=== PATIENT | female | born 1960 | race Two or more races ===

== ENCOUNTER 2018-07-29 16:40 | Inpatient (IN) | payer MEDICAID ==
[~2018-07-29] VITALS: Ht 165.1 cm; Wt 68.0 kg
[2018-07-29] MEDS ORDERED: ALBU2SYR3 INH (17:00)
[2018-07-29] MEDS ORDERED: CALC-15 PO (17:00)
[2018-07-29] MEDS ORDERED: PHEN100C12 PO (17:00)
[2018-07-29] MEDS ORDERED: RISP1TAB7 PO (17:00)
[2018-07-29] MEDS ORDERED: TEMA15CA PO (17:00)
[2018-07-29] MEDS ORDERED: PHEN97.22 PO (17:00)
[2018-07-29] MEDS ORDERED: TRAZ150T75 PO (17:00)
[2018-07-29] MEDS ORDERED: QUET25TA PO (17:00)
[2018-07-29] MEDS ORDERED: OMEP40CA37 PO (17:00)
[2018-07-29] MEDS ORDERED: OXCA300T15 PO (17:00)
[2018-07-29] MEDS ORDERED: SIMV20TA6 PO (17:00)
[2018-07-29] MEDS ORDERED: ASPIRIN 300 MG RECTAL SUPP RC ONE ×2 (17:11→17:15)
[2018-07-29] MEDS ORDERED: LORAZEPAM 2 MG/1 ML VIAL ONE ×2 (17:12→18:28)
[2018-07-29] MEDS ORDERED: VANCOMYCIN IV 1,000 MG in IV DEXTROSE 5% 250 ML IV ONE (17:15)
[2018-07-29] MEDS ORDERED: LORAZEPAM 2 MG/1 ML VIAL IV ONE ×2 (17:15→18:30)
[2018-07-29] MEDS ORDERED: PIPERACILLIN SODIUM/TAZOBACTAM 3.375 G in IV DEXTROSE 5% 50 ML IV ONE (17:15)
[2018-07-29] MEDS ORDERED: IV NORMAL SALINE 1000 ML BAG IV ONE (17:15)
[2018-07-29 17:20] LABS: EOSINOPHILS # (AUTO) 0.1 K/uL (0.0-0.7); EOSINOPHILS % (AUTO) 1.6 % (0.0-7.0); HEMATOCRIT 38.2 % (31.2-41.9); LYMPHOCYTES # (AUTO) 1.3 K/uL (20.0-40.0); LYMPHOCYTES % (AUTO) 33.8 % (20.5-51.5); MEAN CORPUSCULAR HGB CONC 34 g/dL (32.3-35.6); MEAN CORPUSCULAR VOLUME 93.7 fL (75.5-95.3); MONOCYTES # (AUTO) 0.3 K/uL (2.0-10.0); MONOCYTES % (AUTO) 8.3 % (0.0-11.0); NEUTROPHILS # (AUTO) 2.1 K/uL (1.8-8.9); NEUTROPHILS % (AUTO) 55.3 % (38.5-71.5); PLATELET COUNT (AUTO) 217 K/uL (179-408); RED BLOOD CELL COUNT(AUTO) 4.07 MIL/uL (3.63-4.92); WHITE BLOOD COUNT (AUTO) 3.8 K/uL (3.8-11.8)
[2018-07-29] MEDS ORDERED: PIPERACILLIN/TAZOBACTAM/D5W 50 ML IV ONE (17:20)
[2018-07-29] MEDS ORDERED: VANCOMYCIN IV 200 ML ONE (17:20)
[2018-07-29 17:43] LABS: ALANINE AMINOTRANSFERASE 29 U/L (14-59); ALKALINE PHOSPHATASE 81 U/L (50-136); ASPARTATE AMINOTRANSFERASE 24 U/L (15-37); BILIRUBIN,DIRECT < 0.1 mg/dL (0.0-0.2); BILIRUBIN,TOTAL 0.2 mg/dL (0.2-1.0); CARBON DIOXIDE 25 mmol/L (21-32); CHLORIDE 98 mmol/L (98-107); CREATININE 0.9 mg/dL (0.6-1.3); GLUCOSE 108 mg/dL (74-106); TOTAL PROTEIN, SERUM 7.6 g/dL (6.4-8.2)
[2018-07-29 17:44] LABS: POTASSIUM 4.6 mmol/L (3.5-5.1); UREA NITROGEN, BLOOD 11 mg/dL (7-18)
[2018-07-29 18:05] LABS: *BILIRUBIN,URIN NEGATIVE (NEGATIVE); *BLOOD, URINE NEGATIVE (NEGATIVE); *CLARITY,URINE CLEAR (CLEAR); *COLOR,URINE YELLOW (YELLOW); *KETONES,URINE NEGATIVE (NEGATIVE); *PROTEIN,URINE NEGATIVE (NEGATIVE); *UROBILINOGEN,URINE 0.2 E.U./dl (NORMAL); LEUKOCYTE ESTERASE ,URINE NEGATIVE (NEGATIVE); NITRITE, URINE NEGATIVE (NEGATIVE); UGLUCOSE NEGATIVE (NEGATIVE)
[2018-07-29 18:10] LABS: MUCUS,URINE FEW /LPF (0-FEW); WBC,URINE 0-3 /HPF (0-3)
--- NOTE | 2018-07-29 19:15 | NUR ---
REPORT RECEIVED FROM ALEENA RAMOS
--- NOTE | 2018-07-29 19:33 | NUR ---
REPORT GIVEN TO TELEMETRY NURSE, LUCY. SEPSIS PROTOCOL RE-ASSESSMENT TO BE DONE BY FLOOR NURSE.
--- NOTE | 2018-07-29 19:50 | NUR ---
Pt. admitted to TELEMETRY, under care of Dr. SHIN Belongs List completed
--- NOTE | 2018-07-29 20:00 | NUR ---
RECEIVED PATIENT VIA GURNEY FROM ER. PATIENT IS ALERT TO SELF ONLY, BUT UNABLE TO COMPREHEND DUE TO MENTAL STATUS. PATIENT IS VERY AGITATED, UNABLE TO REDIRECT. TRYING TO CLIMB OOB AND REMOVE IV LINES. UNABLE TO PLACE TELE AT THIS TIME. CALLED OUT TO DR. SZYMANSKI FOR FURTHER ORDERS. BED ALARM ON. CALL LIGHT IN REACH. ALL NEEDS ATTENDED. WILL CONTINUE TO MONITOR AND ASSESS.
[2018-07-29] MEDS: LORAZEPAM 2 MG/1 ML VIAL IV PRN (20:19)
--- NOTE | 2018-07-29 20:30 | NUR ---
RECEIVED NEW ORDERS FROM DR. SZYMANSKI. PATIENT GIVEN ATIVAN 1MG IV PRN FOR AGITATION PER RN. VS WNL. H/L INTACT AND PATENT, NOTED TO LEFT FA #22 GAUGE. SEIZURES PRECAUTIONS IN PLACE, SIDES RAILS PADDED. ON O2 2L NC SATING WELL. WILL CONTINUE TO MONITOR. PATIENT IS ON TELE SR. ALL NEEDS ATTENDED, BED ALARM ON.
[2018-07-29] MEDS ORDERED: MORPHINE SULFATE 2 MG/1 ML DISP.SYRIN IV PRN (20:45)
[2018-07-29] MEDS ORDERED: LORAZEPAM 2 MG/1 ML VIAL IV PRN (20:45)
[2018-07-29] MEDS ORDERED: ZIPRASIDONE MESYLATE 20 MG VIAL IM PRN (20:45)
[2018-07-29] MEDS ORDERED: ALBUTEROL SULFATE 2.5 MG/3 ML NEBU NEB PRN (20:45)
[2018-07-29] MEDS ORDERED: ACETAMINOPHEN 650 MG SUPP.RECT RC PRN (20:45)
[2018-07-29] MEDS ORDERED: ONDANSETRON 4 MG/2 ML VIAL IV PRN (20:45)
[2018-07-29] MEDS: IV D5/ 0.9% NACL 1,000 ML IV PRN (21:01)
[2018-07-29 21:25] VITALS: BP 126/75
--- NOTE | 2018-07-29 21:30 | NUR ---
PATIENT ASLEEP. ON TELE SR. IVF INFUSING WELL ORDERED PER MD. PATIENT IS NPO ORDERED. NO RESP. DISTRESS NOTED. NO SEIZURE ACTIVITY NOTED, WILL CONTINUE TO MONITOR. ALL NEEDS ATTENDED.
[2018-07-30 04:00] VITALS: BP 108/52
[2018-07-30 05:44] LABS: BASOPHILS % (AUTO) 0.6 % (0.0-2.0); EOSINOPHILS # (AUTO) 0.1 K/uL (0.0-0.7); EOSINOPHILS % (AUTO) 1.5 % (0.0-7.0); HEMATOCRIT 35.4 % (31.2-41.9); HEMOGLOBIN 12.2 g/dL (10.9-14.3); LYMPHOCYTES # (AUTO) 2.3 K/uL (20.0-40.0); MEAN CORPUSCULAR HEMOGLOBIN 31.9 uug (24.7-32.8); MEAN CORPUSCULAR HGB CONC 35 g/dL (32.3-35.6); MEAN CORPUSCULAR VOLUME 92.4 fL (75.5-95.3); MONOCYTES # (AUTO) 0.4 K/uL (2.0-10.0); MONOCYTES % (AUTO) 6.9 % (0.0-11.0); NEUTROPHILS # (AUTO) 3.2 K/uL (1.8-8.9); PLATELET COUNT (AUTO) 215 K/uL (179-408); RED BLOOD CELL COUNT(AUTO) 3.83 MIL/uL (3.63-4.92)
[2018-07-30 06:13] LABS: THYROID STIMULATING HORMONE 0.724 mIU/mL (0.358-3.740)
[2018-07-30 06:32] LABS: BILIRUBIN,TOTAL 0.3 mg/dL (0.2-1.0); CREATININE 0.8 mg/dL (0.6-1.3); MAGNESIUM 1.7 mg/dL (1.8-2.4); POTASSIUM 3.6 mmol/L (3.5-5.1); TOTAL PROTEIN, SERUM 6.6 g/dL (6.4-8.2)
--- NOTE | 2018-07-30 07:15 | NUR ---
patient received resting in bed with her head covered with blanket, patient in no distress noted, davey catheter draining well. IV fluids running on left forearm at 75ml/hr.continue to monitor
[2018-07-30] MEDS ORDERED: MORPHINE SULFATE 4 MG/1 ML DISP.SYRIN IV PRN (08:30)
[2018-07-30] MEDS ORDERED: MAGNESIUM SULFATE/D5W 100 ML IV SCH (08:30)
[2018-07-30 08:43] VITALS: BP 95/65
--- NOTE | 2018-07-30 08:53 | NUR ---
Pt is awake and alert at this time,oriented to self, disoriented to place and time, able to verbalize president at this time, patient with fair insight into her Disease Process of Seizures, patient was advised of reason for admission,patient verbalizes she usually is disoriented when she has had a seizure, patient verbalizes she is also aware when she will be having one, stated that she usually she haves a headache coming on and sometimes tremors in upper extremities, continue to monitor patient provided with orientation, call light within reach,maintain seizure precautions.
[2018-07-30] MEDS ORDERED: PANTOPRAZOLE SODIUM 40 MG VIAL IV SCH (09:00)
[2018-07-30] MEDS ORDERED: ACETAMINOPHEN 325 MG TABLET PO PRN (09:00)
--- NOTE | 2018-07-30 09:01 | NUR ---
patient verbalized she is a current everyday smoker with approximately 3 cigarettes a day, Dr Zaragoza notified, no orders for patch a this time per MD.
[2018-07-30] MEDS: LORAZEPAM 2 MG/1 ML VIAL IV PRN ×2 (10:03→15:25)
[2018-07-30 11:44] VITALS: BP 102/68
--- NOTE | 2018-07-30 11:54 | NUR ---
PATIENT FREQUENTLY ATTEMPTING TO GET OUT OF BED WITHOUT ASSISTANCE, PATIENT WITH IV FLUIDS, INDWELLING CATHETER AND DVT PUMPS TODAY,FALL RISK, REMOVED DVT PUMPS. PATIENT UNSAFE, ATTEMPTS TO GET UP AND GETS ENTANGLED ON TUBING, PATIENT NEEDS FREQUENT REDIRECTION, ATIVAN 1MG IV WAS PROVIDED HOWEVER CALMED PATIENT FOR SHORT PERIOD OF TIME, PATIENT IS REDIRECTABLE NOT COMBATIVE HOWEVER FORGETFUL, FALL RISK. POOR MEMORY CONTINUE TO MONITOR AND EDUCATE FREQUENT ROUNDING, MAINTAIN FALL PRECAUTIONS AND SEIZURE PRECAUTIONS.
--- NOTE | 2018-07-30 13:10 | NUR ---
Patient sitting up in bed eating lunch no distress noted, swallowing well, continues to need frequent redirection attempts to ambulate without assistance. patient verbalizing she needs to void, redirected to indwelling catheter, patient forgetful. continue to redirect , fall risk
[2018-07-30] MEDS ORDERED: PHENYTOIN SODIUM EXTENDED 100 MG CAPSULE.SA PO ONE (14:00)
--- NOTE | 2018-07-30 15:00 | NUR ---
[place] catheter removed per MD orders, patient voiding after removal without difficulty continue to monitor
[2018-07-30] MEDS: IV D5/ 0.9% NACL 1,000 ML IV PRN (15:28)
[2018-07-30 15:30] VITALS: BP 111/70
--- NOTE | 2018-07-30 15:30 | NUR ---
Pt has a 1:1 sitter due to patient trying to get out of bed and lowry to the restroom while having a davey cath in place. Pt is at risk for injury
[2018-07-30 19:00] VITALS: BP 123/81
--- NOTE | 2018-07-30 19:30 | NUR ---
Received patient in stable condition at start of shift. Vital signs in range. A/Ox1-2 with confusion. Patient resting comfortably in bed at beginning of shift in no acute distress. 1:1 sitter at the bedside for safety. Patient on Seizure precautions. Bed rails padded. Room checked for safety at start of shift. Call light in reach. Will continue to monitor through shift.
[2018-07-30] MEDS ORDERED: QUETIAPINE FUMARATE 25 MG TABLET PO PRN (19:45)
[2018-07-30] MEDS: PHENOBARBITAL 32.4 MG TABLET PO SCH (20:23)
[2018-07-30] MEDS: OXCARBAZEPINE 300 MG TABLET PO SCH (20:55)
[2018-07-30] MEDS: PHENYTOIN 50 MG TAB.CHEW PO SCH (20:55)
[2018-07-30] MEDS ORDERED: TRAZODONE 100 MG TABLET PO SCH (21:00)
[2018-07-30] MEDS ORDERED: risperiDONE 1 MG TABLET PO SCH (21:00)
[2018-07-31 04:39] VITALS: BP 137/72
--- NOTE | 2018-07-31 06:35 | NUR ---
Patient slept intermittently through shift. No acute distress noted. Vital signs WNL. 1:1 sitter at the bedside for safety. Safety measures implemented. All needs attended to. Medications administered per MD order. compliant with care. Will endorse to day shift nurse.
[2018-07-31 07:12] VITALS: BP 113/78
[2018-07-31] MEDS ORDERED: GLUCERNA 1.2 1000ML LIQUID GT SCH (08:00)
--- NOTE | 2018-07-31 08:00 | NUR ---
AWAKE COOPERATE WELL NO PAIN OR H/A EAT BREAKFAST WELL ON FALL /SEIZURE PRECAUTION CALL LIGHT INREACH AND SITTER AT BEDSIDE FOR SAFETY
[2018-07-31] MEDS: PHENOBARBITAL 32.4 MG TABLET PO SCH (08:10)
[2018-07-31] MEDS: PHENYTOIN 50 MG TAB.CHEW PO SCH (08:10)
[2018-07-31] MEDS: OXCARBAZEPINE 300 MG TABLET PO SCH (08:11)
[2018-07-31] MEDS ORDERED: FAMOTIDINE 20 MG TABLET PO SCH (09:00)
[2018-07-31 11:25] VITALS: BP 102/76
--- NOTE | 2018-07-31 12:30 | NUR ---
VS STABLE NO FEVER NO SOB OR PAIN OR SEIZURE CLOSED OBSERVATION EAT LUNCH WELL
--- NOTE | 2018-07-31 14:30 | NUR ---
D/C INSTRUCTION REGARDING NEED TO F/U WITH OWN PMD CONTINUE HOME MEDICINE ORDER AND EDUCATION PK GIVEN ,VERBALIZES UNDERSTAND AND SIGNS D/C [facility]ET [facility] WAS CALL BUT THEY DO NOT HAVE SOMEONE TO PICK HER UP THEN FAMILY WAS INFORM OF DISCHARGE TODAY AND MESSAGE LEFT. HL WAS DISCONTINUED
--- NOTE | 2018-07-31 15:35 | NUR ---
D/C [facility] WAS CALLTO INFORMOF PATIENT ON THE WAY CONDITION STABLE NO PAIN OR FEVER
== END 2018-07-31 15:35 | DRG 53 ==
LOC: ER 16:42 → TELE 19:39 → MED 07-30 13:15
PROVIDERS: ADMIT Internal Medicine; ATTEND Internal Medicine
DX: G40.909 Epilepsy, unspecified, not intractable, without status epilepticus (principal); D68.59 Other primary thrombophilia; E87.2 Acidosis; G93.89 Other specified disorders of brain; I69.354 Hemiplegia and hemiparesis following cerebral infarction affecting left non-dominant side; S09.90XS Unspecified injury of head, sequela; X58.XXXS Exposure to other specified factors, sequela; F17.210 Nicotine dependence, cigarettes, uncomplicated; Z79.899 Other long term (current) drug therapy; Z74.09 Other reduced mobility; F29 Unspecified psychosis not due to a substance or known physiological condition
CPT/HCPCS: 36415; 70030-TC; 70450; 71045; 83605; 83735; 84443; 85025; 85730; 87040; 87086; 87400; 93005; 94664; 97165; A4663; C9113; J2060; J2543; J3370; J3475; J3486; J7030; J7042

== ENCOUNTER 2018-11-26 00:39 | Inpatient (IN) | payer MEDICAID ==
[~2018-11-26] VITALS: Ht 154.9 cm; Wt 49.9 kg
[~2018-11-26 00:39] MED LIST: ALBU2SYR3 INH; CALC-15 PO; OMEP40CA37 PO; OXCA300T15 PO; PHEN100C12 PO; PHEN97.22 PO; QUET25TA PO; RISP1TAB7 PO; SIMV20TA6 PO; TEMA15CA PO; TRAZ150T75 PO
[2018-11-26] MEDS ORDERED: IPRATROPIUM BROMIDE 0.5 MG/2.5 ML NEBU NEB ONE (00:45)
[2018-11-26] MEDS ORDERED: ALBUTEROL SULFATE 2.5 MG/3 ML NEBU NEB ONE (00:45)
[2018-11-26] MEDS ORDERED: methylPREDNISolone SOD SUCC 125 MG/2 ML VIAL IV ONE (00:45)
[2018-11-26] MEDS ORDERED: IPRATROPIUM BROMIDE 0.5 MG/2.5 ML NEBU ONE (00:51)
[2018-11-26 01:14] LABS: BASOPHILS % (AUTO) 0.6 % (0.0-2.0); EOSINOPHILS # (AUTO) 0.1 K/uL (0.0-0.7); EOSINOPHILS % (AUTO) 2.1 % (0.0-7.0); HEMATOCRIT 38.4 % (31.2-41.9); HEMOGLOBIN 12.9 g/dL (10.9-14.3); LYMPHOCYTES # (AUTO) 1.2 K/uL (20.0-40.0); LYMPHOCYTES % (AUTO) 23.3 % (20.5-51.5); MEAN CORPUSCULAR HEMOGLOBIN 30.6 uug (24.7-32.8); MEAN CORPUSCULAR HGB CONC 34 g/dL (32.3-35.6); MEAN CORPUSCULAR VOLUME 91.4 fL (75.5-95.3); MONOCYTES # (AUTO) 0.5 K/uL (2.0-10.0); MONOCYTES % (AUTO) 9.4 % (0.0-11.0); NEUTROPHILS # (AUTO) 3.4 K/uL (1.8-8.9); NEUTROPHILS % (AUTO) 64.6 % (38.5-71.5); PLATELET COUNT (AUTO) 252 K/uL (179-408); WHITE BLOOD COUNT (AUTO) 5.3 K/uL (3.8-11.8)
[2018-11-26] MEDS ORDERED: ALBUTEROL SULFATE 2.5 MG/3 ML NEBU ONE (01:24)
[2018-11-26] MEDS ORDERED: ALBUTEROL SULFATE 2.5 MG/ 0.5 ML NEBU ONE (01:24)
[2018-11-26 01:30] LABS: CREATININE 0.7 mg/dL (0.6-1.3); POTASSIUM 3.6 mmol/L (3.5-5.1)
[2018-11-26 01:36] LABS: BILIRUBIN,DIRECT 0.1 mg/dL (0.0-0.2); BILIRUBIN,TOTAL 0.2 mg/dL (0.2-1.0); TOTAL PROTEIN, SERUM 7.9 g/dL (6.4-8.2)
[2018-11-26 01:43] LABS: PHENOBARBITAL 37.2 ug/mL (15.0-39.0); PHENYTOIN (DILANTIN) 21.7 ug/mL (10.0-20.0)
--- NOTE | 2018-11-26 02:02 | NUR ---
notified by lab there will be delay with lactic acid result due to problem w machine
[2018-11-26] MEDS ORDERED: methylPREDNISolone SOD SUCC 125 MG/2 ML VIAL ONE (02:26)
--- NOTE | 2018-11-26 02:34 | NUR ---
very hard stick patient md : brian notified and made aware .no ivf acccess at this time .
[2018-11-26] MEDS ORDERED: methylPREDNISolone SOD SUCC 125 MG/2 ML VIAL IM ONE (02:45)
[2018-11-26] MEDS ORDERED: CEFTAZIDIME 1 G VIAL IM ONE (02:45)
[2018-11-26] MEDS ORDERED: CEFTAZIDIME 1 G VIAL ONE (02:53)
--- NOTE | 2018-11-26 03:00 | NUR ---
called [facility] for panel call LUIS khalil director of transportation .
--- NOTE | 2018-11-26 03:01 | NUR ---
patient is a hard stick and needs a PIccline as per MD :brian ,print line supervisor made aware ..
--- NOTE | 2018-11-26 03:10 | NUR ---
straight catheterization for urine collection for ua and c and s. done aseptically .
--- NOTE | 2018-11-26 03:10 | NUR ---
02 room air saturation 90 to 91% placed 02 nasal cannula at 3 liters/ min .hob up .
--- NOTE | 2018-11-26 03:30 | NUR ---
called [facility] again for panel call .
[2018-11-26 03:32] LABS: *BILIRUBIN,URIN NEGATIVE (NEGATIVE); *BLOOD, URINE NEGATIVE (NEGATIVE); *CLARITY,URINE CLEAR (CLEAR); *COLOR,URINE YELLOW (YELLOW); *KETONES,URINE NEGATIVE (NEGATIVE); LEUKOCYTE ESTERASE ,URINE NEGATIVE (NEGATIVE); NITRITE, URINE NEGATIVE (NEGATIVE); UGLUCOSE NEGATIVE (NEGATIVE)
[2018-11-26 03:36] LABS: RBC,URINE 0-3 /HPF (0-3); WBC,URINE 0-3 /HPF (0-3)
[2018-11-26 03:37] LABS: BACTERIA,URINE NONE SEEN /HPF (NONE SEEN); SQUAMOUS EPITHELIAL CELL,UR FEW /HPF (NONE SEEN)
--- NOTE | 2018-11-26 04:03 | NUR ---
sbar report given to RICHARD CROOKS.patient going to bed 204.
--- NOTE | 2018-11-26 04:24 | NUR ---
patient will need PICCLINE placement in am MD :CINTHYA aware no ivf fluids given as per md patient not sepsis patient .
[2018-11-26 04:30] VITALS: BP 101/69
[2018-11-26] MEDS ORDERED: Z GUARD REMEDY PASTE 57 GM TUBE TOP PRN (05:30)
[2018-11-26] MEDS ORDERED: ACETAMINOPHEN 325 MG TABLET PO PRN (05:30)
[2018-11-26] MEDS ORDERED: TRAZODONE 100 MG TABLET PO PRN (05:30)
[2018-11-26] MEDS ORDERED: ALBUTEROL SULFATE 2.5 MG/3 ML NEBU NEB PRN (05:30)
[2018-11-26] MEDS ORDERED: QUETIAPINE FUMARATE 25 MG TABLET PO PRN (05:30)
[2018-11-26] MEDS ORDERED: risperiDONE 1 MG TABLET PO PRN (05:30)
--- NOTE | 2018-11-26 06:11 | NUR ---
THIS IS A 58 Y.O. FEMALE CAME IN FOR SOB/COUGHING. ADMITTING DX EXACERBATION OF ASTHMA. ADMISSION ASSESSMENTS DONE. PATIENT ON O2 AT 3LPM SAT AT 98%. NO SOB OR RESP DISTRESS AT PRESENT.
[2018-11-26] MEDS: methylPREDNISolone SOD SUCC 40 MG/ML VIAL IV SCH ×3 (06:23→21:05)
[2018-11-26] MEDS: IPRATROPIUM BROMIDE 0.5 MG/2.5 ML NEBU NEB SCH ×5 (07:35→22:31)
--- NOTE | 2018-11-26 07:40 | NUR ---
RECEIVED SHIFT REPORT FROM TUBER HELPER NURSE. PATIENT IS IN BED, AWAKE ALERT AND ORIENTED. NO SIGNS OF DISTRESS NOTED. ON 3L OF OXYGEN VIA NASAL CANNULA. WILL CONTINUE TO MONITOR.
[2018-11-26] MEDS: OXCARBAZEPINE 300 MG TABLET PO SCH (10:55)
[2018-11-26] MEDS: PHENOBARBITAL 32.4 MG TABLET PO SCH (10:55)
[2018-11-26] MEDS: PHENYTOIN SODIUM EXTENDED 100 MG CAPSULE.SA PO SCH ×3 (10:55→16:46)
[2018-11-26 11:33] VITALS: BP 111/54
[2018-11-26] MEDS: IV NS 1000 ML 1,000 ML IV PRN (12:21)
[2018-11-26 16:00] VITALS: BP 110/74
--- NOTE | 2018-11-26 19:24 | NUR ---
REPORT GIVEN TO SECURITY CLERK. PATIENT IS ALERT AND ORIENTED. BED IS IN LOW LOCKED POSITION WITH CALL LIGHT IN REACH. ON 3L VIA NASAL CANNULA. NO DISTRESS NOTED.
[2018-11-26] MEDS: SIMVASTATIN 20 MG TABLET PO SCH (20:16)
[2018-11-26] MEDS: risperiDONE 1 MG TABLET PO SCH (20:16)
[2018-11-26] MEDS: QUETIAPINE FUMARATE 25 MG TABLET PO SCH (20:17)
[2018-11-26 20:37] VITALS: BP 110/66
[2018-11-27 00:21] VITALS: BP 111/70
--- NOTE | 2018-11-27 02:25 | NUR ---
PT REUSED TO HAVE HER TELE MONITOR READJUSTED AGAIN, PT REFUSING TO HAVE THE TELE ON WHILE SHE IS SLEEPING, DR DUBON NOTIFIED.
[2018-11-27] MEDS: IPRATROPIUM BROMIDE 0.5 MG/2.5 ML NEBU NEB SCH ×6 (02:30→22:35)
[2018-11-27 04:57] VITALS: BP 129/74
--- NOTE | 2018-11-27 05:05 | NUR ---
PT SLEPT WELL THROUGH THE NIGHT AND WAS EASILY AWOKEN, PT DENIES HAVING ANY PAIN OR DIFFICULTY BREATHING, PT DOES HAVE OCCASIONAL COUGH BUT NO COMPLAINT OF DIFFICULTY BREATHING . PT DURING THE NIGHT WANTED TO BE LEFT ALONE WHEN STAFF TRIED TO READJUST TELE MONITOR WHILE SHE WAS SLEEPING PT REFUSED, PT WAS COOPERATIVE WITH REST OF HER CARE. ALL NEEDS MET, SAFETY MEASURES ARE IN PLACE, CALL LIGHT WITHIN REACH, BED ALARM IS ON.
[2018-11-27] MEDS: methylPREDNISolone SOD SUCC 40 MG/ML VIAL IV SCH ×3 (06:12→22:00)
[2018-11-27] MEDS: IV NS 1000 ML 1,000 ML IV PRN ×2 (06:12→22:19)
[2018-11-27 06:31] LABS: BASOPHILS % (AUTO) 0.5 % (0.0-2.0); EOSINOPHILS # (AUTO) 0.1 K/uL (0.0-0.7); EOSINOPHILS % (AUTO) 1.7 % (0.0-7.0); HEMATOCRIT 34.1 % (31.2-41.9); HEMOGLOBIN 11.7 g/dL (10.9-14.3); LYMPHOCYTES # (AUTO) 2.4 K/uL (20.0-40.0); MEAN CORPUSCULAR HEMOGLOBIN 31.1 uug (24.7-32.8); MEAN CORPUSCULAR HGB CONC 34 g/dL (32.3-35.6); MEAN CORPUSCULAR VOLUME 90.9 fL (75.5-95.3); MONOCYTES # (AUTO) 0.6 K/uL (2.0-10.0); MONOCYTES % (AUTO) 8.4 % (0.0-11.0); NEUTROPHILS # (AUTO) 3.6 K/uL (1.8-8.9); NEUTROPHILS % (AUTO) 53.4 % (38.5-71.5); PLATELET COUNT (AUTO) 272 K/uL (179-408); RED BLOOD CELL COUNT(AUTO) 3.75 MIL/uL (3.63-4.92); WHITE BLOOD COUNT (AUTO) 6.7 K/uL (3.8-11.8)
[2018-11-27 06:58] LABS: THYROID STIMULATING HORMONE 0.488 mIU/mL (0.358-3.740)
[2018-11-27 07:15] LABS: BILIRUBIN,TOTAL 0.1 mg/dL (0.2-1.0); CREATININE 0.7 mg/dL (0.6-1.3); MAGNESIUM 1.5 mg/dL (1.8-2.4); PHOSPHOROUS 3.5 mg/dL (2.5-4.9); POTASSIUM 3.9 mmol/L (3.5-5.1)
--- NOTE | 2018-11-27 07:30 | NUR ---
RECEIVED PATIENT IN BED AWAKE ALERT AND ORIENTED DENIES PAIN OD DISCOMFORTS AT THIS TIME REMAIN ON IVF ORDERED WITH NO S/S OF INFILTERATION ON SITE NO SHORTNESS OF BREATH AT THIS TIME CALL LIGHTS AND PERSOANL BELONGINGS PLACED WITHIN EASY REACH AND WILL CONTINUE TO OBSERVE.
[2018-11-27] MEDS: QUETIAPINE FUMARATE 25 MG TABLET PO SCH ×2 (08:20→22:00)
[2018-11-27] MEDS: PHENYTOIN SODIUM EXTENDED 100 MG CAPSULE.SA PO SCH ×3 (08:20→16:03)
[2018-11-27] MEDS: OXCARBAZEPINE 300 MG TABLET PO SCH (08:21)
[2018-11-27] MEDS: PHENOBARBITAL 32.4 MG TABLET PO SCH (08:21)
[2018-11-27 11:36] VITALS: BP 97/56
--- NOTE | 2018-11-27 12:00 | NUR ---
SLEEPING ON AND OFF BUT HAS BEEN COMPLIANT WITH HER MEDICATIONS NO SEIZURE ACTIVITIES NOTED
[2018-11-27] MEDS: MAGNESIUM SULFATE/D5W 100 ML IV SCH ×2 (13:51→15:08)
[2018-11-27 15:50] VITALS: BP 103/62
--- NOTE | 2018-11-27 18:24 | NUR ---
MAGNESSIUM LEVEL IS 1.5 SEE BY LENO SMITH WITH NEW ORDERS 2 GRAMS GIVEN ORDERED.
[2018-11-27 20:12] VITALS: BP 114/59
[2018-11-27] MEDS: SIMVASTATIN 20 MG TABLET PO SCH (21:59)
[2018-11-27] MEDS: risperiDONE 1 MG TABLET PO SCH (22:00)
[2018-11-28 00:01] VITALS: BP 122/64
--- NOTE | 2018-11-28 00:20 | NUR ---
NOTIFIED MD: PATIENT BRP Q15MIN OR MORE. PATIENT HAD PULLED LEFT UPPER ARM MIDLINE IV. ORDERS RECEIVED. WEI INSERT BY FEMALE RN.
[2018-11-28 00:34] VITALS: BP 122/64
[2018-11-28] MEDS: IPRATROPIUM BROMIDE 0.5 MG/2.5 ML NEBU NEB SCH ×5 (02:32→19:03)
--- NOTE | 2018-11-28 03:50 | NUR ---
RECEIVED REPORT FROM RN. PATIENT ASLEEP IN BED. NO RESP. DISTRESS NOTED. ON TELE. CALL LIGHT IN REACH. ALL NEEDS ATTENDED. WILL CONTINUE TO MONITOR.
[2018-11-28 05:22] VITALS: BP 131/71
[2018-11-28] MEDS: methylPREDNISolone SOD SUCC 40 MG/ML VIAL IV SCH ×2 (05:53→13:44)
[2018-11-28 06:49] LABS: CREATININE 0.8 mg/dL (0.6-1.3); MAGNESIUM 1.9 mg/dL (1.8-2.4); POTASSIUM 4.3 mmol/L (3.5-5.1)
[2018-11-28] MEDS: OXCARBAZEPINE 300 MG TABLET PO SCH (08:19)
[2018-11-28] MEDS: PHENYTOIN SODIUM EXTENDED 100 MG CAPSULE.SA PO SCH ×3 (08:19→16:39)
[2018-11-28] MEDS: QUETIAPINE FUMARATE 25 MG TABLET PO SCH (08:19)
[2018-11-28] MEDS: PHENOBARBITAL 32.4 MG TABLET PO SCH (08:19)
--- NOTE | 2018-11-28 10:00 | NUR ---
IV SITE ON HER LEFT FOREARM INFILTERATED PATIENT HAD PULLED OUT HER MID LINE PREVIOUS SHIFT AND STATED TO WAIT TO REINSERT WAS NOT READY AT THIS TIME SO PATIENT INSTRUCTED TO DRINK ORAL FLUIDS MUCH POSSIBLE UNTIL I CAN TALK TO THE DOCTOR TO SEE IF ANY ORDERS.
[2018-11-28 12:00] VITALS: BP 96/52
--- NOTE | 2018-11-28 12:47 | NUR ---
PER THE SENIOR PHP DEVELOPER PATIENT MIGHT BE DISCHARGED TODAY SO MESSAGE LEFT FOR LENO SMITH TO VERIFY IF PATIENT WILL BE DISCHARGE IN ORDER TO MAKE A DECISION ON REINSERTING THE HEPLOCK BECAUSE PATIENT IS ON SOLU MEDROL AND IVF.
--- NOTE | 2018-11-28 13:42 | NUR ---
PATIENT STATED WANTS WEI REMOVED SO WEI REMOVED AT THIS TIME AND PATIENT ASSISTED INTO THE BATHROOM AND VOIDING STATED REFUSED TO HAVE IT REINSERTED BOTHERS HER.
[2018-11-28 14:36] LABS: *BILIRUBIN,URIN NEGATIVE (NEGATIVE); *BLOOD, URINE Trace-intact (NEGATIVE); *CLARITY,URINE CLEAR (CLEAR); *COLOR,URINE YELLOW (YELLOW); *KETONES,URINE NEGATIVE (NEGATIVE); *UROBILINOGEN,URINE 0.2 E.U./dl (NORMAL); LEUKOCYTE ESTERASE ,URINE NEGATIVE (NEGATIVE); NITRITE, URINE NEGATIVE (NEGATIVE); PH,URINE 7.5 (5.0-8.0); UGLUCOSE NEGATIVE (NEGATIVE)
[2018-11-28 14:50] LABS: RBC,URINE 0-3 /HPF (0-3)
[2018-11-28 14:51] LABS: BACTERIA,URINE RARE /HPF (NONE SEEN); SQUAMOUS EPITHELIAL CELL,UR FEW /HPF (NONE SEEN)
--- NOTE | 2018-11-28 15:31 | NUR ---
D/C PLANNING LENO SMITH AWARE THAT PATIENT HAS NO IV ACCESS AND THAT WEI WAS REMOVED PER PATIENTS REQUEST STATED ITS OKAY BECAUSE HE IS PLANNING TO DISCHARGE PATIENT TODAY AWAITING FOR DISCHARGE ORDERS.
[2018-11-28 15:39] VITALS: BP 134/61
--- NOTE | 2018-11-28 17:05 | NUR ---
PER THE MARKETING DATABASE CONSULTANT ATTEMPTING TO ARRANGE FOR TRANSPORTATION STATED MAY BE THE [facility] OR THE INSURANCE MAY BE ABLE TO APPROVE AN AMBULANCE FOR DISCHARGE.
--- NOTE | 2018-11-28 18:20 | NUR ---
PATIENT DISCHARGED PICKED UP BY THE [facility] WITH ALL OF HER PERSONAL BELONGINGS AND DISCHARGE INSTRUCTIONS AND PER THE MAINTENANCE TEAM MEMBER HER PRESCRIPTIONS WAS CALLED INTO PATIENTS OWN PHARMACY AND PATIENTS CARE GIVERS RYANN ARE AWARE
--- NOTE | 2018-11-28 19:01 | NUR ---
WAS CALLED BY THE SUPERVISOR QUALITY CONTROL THAT PATIENT IS DOWN STAIRS AND REFUSED TO BE DROPPED OFF AT HER RESIDENCE SO I WENT DOWN AND EXPLAINED TO THE PATIENT THAT SHE HAS TO GO TO THIS RESIDENCE BECAUSE THAT IS WHERE SHE LIVES AND I CONVINCED HER THAT ANA AND MARY ARE AWARE THAT SHE IS COMING BACK TODAY AND ARE WAITING FOR HER.SO THE POLICE GUARD ASKED ME WHO WILL PAY FOR THE DIFFERENCE OF THE PAY HE NOW HAS TO BILL FOR ROUND TRIP SO I LOOKED AT THE [employer]IVERS GPS THE ADDRESS WAS WRONG INSTEAD OF [address] HE WROTE [id number] SO I CORRECTED HIM AND CALLED AND INFORMED ANA THAT THE PATIENT WAS ON THE WAY HOME.THE NURSING CHIEF LIBRARIAN CIRCULATION DEPARTMENT WAS NOTIFIED OF THE ERROR OF THE CLINICAL PRODUCT MANAGER.
== END 2018-11-28 18:20 | disposition home health service (06) | DRG 141 ==
LOC: ER 00:41 → TELE 04:17 → MED 11-28 15:45
PROVIDERS: ADMIT Nurse Practitioner Acute Care; ATTEND Hospitalist
PROC: 05HY33Z Insertion of Infusion Device into Upper Vein, Percutaneous Approach (ICD-10-PCS; principal; 2018-11-26)
DX: J45.901 Unspecified asthma with (acute) exacerbation (principal); J96.01 Acute respiratory failure with hypoxia; E83.42 Hypomagnesemia; E87.1 Hypo-osmolality and hyponatremia; I69.354 Hemiplegia and hemiparesis following cerebral infarction affecting left non-dominant side; F17.210 Nicotine dependence, cigarettes, uncomplicated; J06.9 Acute upper respiratory infection, unspecified; E78.5 Hyperlipidemia, unspecified; Z80.3 Family history of malignant neoplasm of breast; G40.909 Epilepsy, unspecified, not intractable, without status epilepticus; Z87.81 Personal history of (healed) traumatic fracture; F99 Mental disorder, not otherwise specified
CPT/HCPCS: 36415; 36569; 70030-TC; 71045; 80184; 83605; 83735; 84100; 84443; 85025; 85730; 87040; 87086; 87400; 93005; 94640; 94664; 97116; 97530; A4663; G0378; J0713; J2920; J2930; J3475; J3590; J7030

== ENCOUNTER 2019-11-22 10:07 | Emergency (ER) | payer MEDICAID, OTHER ==
[~2019-11-22] VITALS: Ht 149.9 cm; Wt 45.4 kg
[~2019-11-22 10:07] MED LIST changes: +OMEP40CA13 PO; -OMEP40CA37 PO; +SIMV-46 PO; -SIMV20TA6 PO
--- NOTE | 2019-11-22 10:30 | NUR ---
Patient BIB RA from [facility] independent living. Speech is clear, speaks in complete sentences. A/Ox3. Patient came for c/o cp and sob. Patient in bed at lowest position, sr up x2, call light within reach. Fall preacutions implemented per protocol.
[2019-11-22] MEDS ORDERED: methylPREDNISolone SOD SUCC 125 MG/2 ML VIAL IV ONE (11:00)
[2019-11-22] MEDS ORDERED: ALBUTEROL SULFATE 2.5 MG/3 ML NEBU NEB ONE (11:00)
[2019-11-22 11:31] LABS: BASOPHILS % (AUTO) 0.4 % (0.0-2.0); EOSINOPHILS % (AUTO) 0.9 % (0.0-7.0); LYMPHOCYTES % (AUTO) 23.1 % (20.5-51.5); MEAN CORPUSCULAR HEMOGLOBIN 30.7 uug (24.7-32.8); MEAN CORPUSCULAR HGB CONC 33 g/dL (32.3-35.6); MEAN CORPUSCULAR VOLUME 92.5 fL (75.5-95.3); MONOCYTES # (AUTO) 0.4 K/uL (2.0-10.0); MONOCYTES % (AUTO) 9.6 % (0.0-11.0); NEUTROPHILS # (AUTO) 2.9 K/uL (1.8-8.9); PLATELET COUNT (AUTO) 215 K/uL (179-408); RED BLOOD CELL COUNT(AUTO) 4.22 MIL/uL (3.63-4.92); WHITE BLOOD COUNT (AUTO) 4.4 K/uL (3.8-11.8)
[2019-11-22] MEDS ORDERED: methylPREDNISolone SOD SUCC 125 MG/2 ML VIAL ONE (11:31)
[2019-11-22 11:44] LABS: CARBON DIOXIDE 27 mmol/L (21-32); CHLORIDE 104 mmol/L (98-107); CREATININE 0.8 mg/dL (0.6-1.3); GLUCOSE 102 mg/dL (74-106); POTASSIUM 3.2 mmol/L (3.5-5.1); UREA NITROGEN, BLOOD 12 mg/dL (7-18)
[2019-11-22 11:46] LABS: MAGNESIUM 1.6 mg/dL (1.8-2.4); PHOSPHOROUS 3.8 mg/dL (2.5-4.9)
[2019-11-22 11:56] LABS: ALANINE AMINOTRANSFERASE 31 U/L (14-59); ALKALINE PHOSPHATASE 78 U/L (50-136); ASPARTATE AMINOTRANSFERASE 38 U/L (15-37); BILIRUBIN,DIRECT < 0.1 mg/dL (0.0-0.2); BILIRUBIN,TOTAL 0.1 mg/dL (0.2-1.0); TOTAL PROTEIN, SERUM 7.9 g/dL (6.4-8.2)
[2019-11-22] MEDS ORDERED: CALC500T51 PO (11:56)
[2019-11-22] MEDS ORDERED: ALBU0.63 IH (11:56)
[2019-11-22] MEDS ORDERED: TIOT4MIS3 IH (11:56)
[2019-11-22 11:57] LABS: THYROID STIMULATING HORMONE 0.376 mIU/mL (0.358-3.740)
[2019-11-22] MEDS ORDERED: ALBUTEROL SULFATE 2.5 MG/3 ML NEBU ONE (12:04)
[2019-11-22 12:27] LABS: ABG BASE EXCESS -1.8 mmol/L; ABG HCO3 23.2 mmol/L; ABG PCO2 40.6 mmHg (35.0-45.0); ABG PH 7.375 (7.350-7.450); ABG PO2 65.5 mmHg (75.0-100.0); ABG SITE RIGHT RADIAL; ABG TOTAL HEMOGLOBIN 12.3 G/dL (12.0-16.0); COHb 1.3 % (0.5-1.5); MetHb 0.3 % (0.0-1.5); O2Hb 90.8 % (94.0-97.0); VENT MODE room air
--- NOTE | 2019-11-22 13:15 | NUR ---
Patient in bed at lowest position, patient resting with eyes closed, VSS
--- NOTE | 2019-11-22 14:54 | NUR ---
Spoke to Heather case managers from [facility], they will set up transport and figure out room situation then return our call.
[2019-11-22] MEDS ORDERED: MAGNESIUM SULFATE/D5W 100 ML IV SCH (15:30)
[2019-11-22] MEDS ORDERED: POTASSIUM CHLORIDE 20 MEQ TAB.PRT.SR PO ONE (15:30)
[2019-11-22] MEDS ORDERED: POTASSIUM CHLORIDE 20 MEQ TAB.PRT.SR ONE (15:31)
[2019-11-22] MEDS ORDERED: MAGNESIUM SULFATE 1 GM/2 ML VIAL ONE (15:31)
[2019-11-22 16:37] LABS: *BILIRUBIN,URIN 1+ (NEGATIVE); *BLOOD, URINE NEGATIVE (NEGATIVE); *COLOR,URINE DARK YELLOW (YELLOW); *KETONES,URINE NEGATIVE (NEGATIVE); *UROBILINOGEN,URINE 0.2 E.U./dl (NORMAL); NITRITE, URINE NEGATIVE (NEGATIVE); PH,URINE 6.5 (5.0-8.0); UGLUCOSE NEGATIVE (NEGATIVE)
[2019-11-22 16:38] LABS: *CLARITY,URINE CLOUDY (CLEAR); LEUKOCYTE ESTERASE ,URINE 2+ (NEGATIVE)
[2019-11-22 16:39] LABS: WBC,URINE 80-100 /HPF (0-3)
[2019-11-22 16:40] LABS: BACTERIA,URINE MODERATE /HPF (NONE SEEN); MUCUS,URINE MANY /LPF (0-FEW); SQUAMOUS EPITHELIAL CELL,UR MANY /HPF (NONE SEEN)
--- NOTE | 2019-11-22 16:50 | NUR ---
Received telephone call from [employer]. Pt has been accepted by , pt will be going to [facility] room 5126, ext [phone] for report. The [facility] ambulance (ALS) to corn picker pt for transport, eta 1800.
--- NOTE | 2019-11-22 17:20 | NUR ---
Mike from transfer center called providing transfer information. Patient will be transferred to [facility] room 5126, number for report is [phone]. ETA of ALS transport will be approximately 1800.
--- NOTE | 2019-11-22 18:20 | NUR ---
Patient transported to [facility] in stable condition. Patient Tranfers to outside Facility Physician: DR. LANDIS Location: TELEMETRY; 1106
[2019-11-22] MEDS ORDERED: levoFLOXacin 750 MG TABLET ONE (18:26)
[2019-11-22] MEDS ORDERED: levoFLOXacin 750 MG TABLET PO ONE (18:30)
== END 2019-11-22 18:30 | disposition short-term general hospital (02) ==
LOC: ER 10:07
DX: J44.1 Chronic obstructive pulmonary disease with (acute) exacerbation (principal); J96.91 Respiratory failure, unspecified with hypoxia; N39.0 Urinary tract infection, site not specified; J45.909 Unspecified asthma, uncomplicated; E78.5 Hyperlipidemia, unspecified; F17.200 Nicotine dependence, unspecified, uncomplicated; Z79.899 Other long term (current) drug therapy
CPT/HCPCS: 36415; 36600; 71045; 80048; 80076; 81000; 81001; 83605; 83735; 83880; 84100; 84443; 84484; 85025; 87040 ×2; 87077; 87086; 87186; 87400; 93005; 94640; 96365; 96375; 99285; J2930; J3475; J7060; 70030-TC; A4663